=== PATIENT | female | born 1950 ===

== ENCOUNTER 2020-09-07 08:15 | Inpatient (IN) | payer OTHER ==
[~2020-09-07] VITALS: Ht 147.3 cm; Wt 72.6 kg
[2020-09-14] MEDS ORDERED: METFORMIN HCL1000 M2 PO (09:41)
[2020-09-14] MEDS ORDERED: LIPITOR40 M1 PO (09:41)
[2020-09-21] MEDS ORDERED: GEMFIBROZIL600 MG (13:24)
[2020-09-21] MEDS ORDERED: LOSARTAN POTASS25 MG (13:24)
[2020-09-21] MEDS ORDERED: ALENDRONATE SOD70 MG (13:24)
[2020-09-21] MEDS ORDERED: DICLOFENAC POTA50 MG (13:24)
[2020-09-23] MEDS ORDERED: ELIQUIS2.5 MG PO (12:17)
[2020-09-23] MEDS ORDERED: DUI500 PO (12:17)
[2020-09-23] MEDS ORDERED: PERCOCET 5-3251 EACH PO (12:17)
== END 2020-09-23 14:36 | disposition home or self-care (01) | DRG 470 ==
LOC: O/R 09-21 05:51 → SURH 09-21 08:30 → SURG 09-21 15:03 → SURH 09-21 16:45 → SURG 09-23 14:36
PROVIDERS: ADMIT Orthopaedic Surgery; ATTEND Orthopaedic Surgery
PROC: 0MNN0ZZ Release Right Knee Bursa and Ligament, Open Approach (ICD-10-PCS; 2020-09-21)
PROC: 0SRC0J9 Replacement of Right Knee Joint with Synthetic Substitute, Cemented, Open Approach (ICD-10-PCS; principal; 2020-09-21 16:45)
DX: M17.11 Unilateral primary osteoarthritis, right knee (principal); M22.11 Recurrent subluxation of patella, right knee; Z20.822 Contact with and (suspected) exposure to COVID-19; I10 Essential (primary) hypertension; E11.9 Type 2 diabetes mellitus without complications; Z79.4 Long term (current) use of insulin